=== PATIENT | male | born 1955 | race Caucasian/White ===

== ENCOUNTER 2018-08-19 22:13 | Emergency (ER) | payer OTHER ==
[~2018-08-19] VITALS: Ht 180.3 cm; Wt 59.0 kg
[2018-08-19 22:19] VITALS: BP 167/99
--- NOTE | 2018-08-19 22:58 | NUR ---
PHLEB AT BEDSIDE FOR LAB DRAW
[2018-08-19] MEDS ORDERED: ONDANSETRON 4 MG TAB.RAPDIS SL ONE (23:00)
[2018-08-19] MEDS ORDERED: CHLORDIAZEPOXIDE HCL 25 MG CAPSULE PO ONE (23:00)
--- NOTE | 2018-08-19 23:01 | NUR ---
TECH AT BEDSIDE FOR EKG
[2018-08-19] MEDS ORDERED: ONDANSETRON 4 MG TAB.RAPDIS ONE (23:04)
[2018-08-19] MEDS ORDERED: CHLORDIAZEPOXIDE HCL 25 MG CAPSULE ONE (23:04)
[2018-08-19 23:10] LABS: BASOPHILS % (AUTO) 0.7 % (0.0-2.0); EOSINOPHILS % (AUTO) 0.4 % (0.0-6.0); HEMATOCRIT 49 % (39-51); HEMOGLOBIN 16.9 g/dL (13.5-17.5); LYMPHOCYTES # (AUTO) 1.1 /CMM (0.8-4.8); LYMPHOCYTES % (AUTO) 20.1 % (20.0-44.0); MEAN CORPUSCULAR HGB CONC 35 g/dl (31.0-36.0); MEAN CORPUSCULAR VOLUME 98 fL (80-96); MONOCYTES # (AUTO) 0.5 /CMM (0.1-1.30); MONOCYTES % (AUTO) 9.5 % (2.0-12.0); NEUTROPHILS # (AUTO) 3.6 /CMM (1.8-8.9); NEUTROPHILS % (AUTO) 69.3 % (43.0-81.0); PLATELET COUNT (AUTO) 76 /CMM (150-450); WHITE BLOOD COUNT (AUTO) 5.3 K/uL (4.3-11.0)
[2018-08-19 23:18] LABS: CARBON DIOXIDE 31 mmol/L (21-32); CHLORIDE 93 mmol/L (98-107); CREATININE 0.7 mg/dL (0.6-1.3); GLUCOSE 100 mg/dL (74-106); POTASSIUM 3.8 mmol/L (3.5-5.1); SODIUM SERUM 135 mmol/L (136-145); UREA NITROGEN, BLOOD 11 mg/dL (7-18)
[2018-08-19 23:24] LABS: ALANINE AMINOTRANSFERASE 76 U/L (12-78); ALBUMIN 3.8 g/dL (3.4-5.0); ALCOHOL, BLOOD < 3 mg/dL (0-0); ALKALINE PHOSPHATASE 190 U/L (46-116); ASPARTATE AMINOTRANSFERASE 140 U/L (15-37); BILIRUBIN,DIRECT 0.7 mg/dL (0.0-0.2); BILIRUBIN,TOTAL 2.8 mg/dL (0.2-1.0); TOTAL PROTEIN, SERUM 7.8 g/dL (6.4-8.2)
--- NOTE | 2018-08-19 23:38 | NUR ---
CRISIS CONSULT ORDER WAS CANCELED PER MD.
== END 2018-08-19 23:59 ==
LOC: ER 22:16
DX: F10.239 Alcohol dependence with withdrawal, unspecified (principal); F19.10 Other psychoactive substance abuse, uncomplicated; F17.200 Nicotine dependence, unspecified, uncomplicated; I10 Essential (primary) hypertension; J44.9 Chronic obstructive pulmonary disease, unspecified; Z88.8 Allergy status to other drugs, medicaments and biological substances; Y90.9 Presence of alcohol in blood, level not specified
CPT/HCPCS: 36415; 80048; 80076; 80307; 84484; 85025; 93005; 99284; 99406; Q0162; G0480